=== PATIENT | female | born 1960 | race Caucasian/White ===

== ENCOUNTER 2019-09-12 11:28 | Emergency (ER) | payer MEDICAID, SELFPAY ==
[2019-09-12] VITALS (42 sets, daily range): BP systolic 71–171; BP diastolic 41–89; PULSE 53–76; RESP 9–24; TEMP 36.5–36.7; O2SAT 86–100
--- NOTE | 2019-09-12 11:30 | DI.RAD_ITS ---
EXAM: XR WRIST LT COMPLETE and XR forearm LT CLINICAL HISTORY: fall, deformity. TECHNIQUE: 2D digital imaging was performed. COMPARISON: XR FOREARM LT from 09/12/2019 FINDINGS: BONES: There is a comminuted fracture of the distal left radius. The fracture is intra-articular. T here is impaction and dorsal angulation of the distal fracture noted. There is a displaced fracture of the ulnar styloid process. The proximal forearm and visualized portions of the elbow are unremark able. JOINTS: The carpal bones are normally aligned. SOFT TISSUE: There is soft tissue swelling about the wrist. IMPRESSION: Fractures involving the distal left radius and ulna as described above. DATA REPOSITORY: RADIATION DOSE DELIVERED:
--- NOTE | 2019-09-12 11:44 | ED.GENADUL_ITS ---
Discharge Plan Disposition Patient Disposition: HOME Condition: Stable Discharge Details Chief Complaint: Chest/Rib Clinical Impression: Closed fracture of left distal radius, Displaced fracture of left ulna styloid process, initial encounter for closed fracture Primary Care Provider: None,None ED Provider: Dorie Michaels Home Meds and New Rx's Prescriptions: New tramadol 50 mg tablet 50 mg PO TID PRN (Reason: pain) 2 Days Qty: 7 RF: 0 ondansetron HCl [Zofran] 4 mg tablet 4 mg PO Q8H PRN (Reason: nausea and vomiting) Qty: 10 RF: 0 Discharge Instructions Instructions: Wrist Fracture in Adults (ED) Additional Instructions: Keep splint on until follow-up with orthopedics. Call [facility] tomorrow morning to confirm appointment on September 16. Ice, elevation, NSAIDs. Referrals: Aquiles Beth MD [ [facility] STAFF PHYSICIAN] - Discharge Data Discharge Date/Time-TO BE ENTERED AT DEPARTURE: 09/12/19 19:45 Medical Decision Making <Dorie Michaels - Last Filed: 09/13/19 08:06> 58-year-old female presents with left rib and left arm pain after a fall off a chair approximately 1 hour prior to arrival. Patient states she was standing on a chair cleaning on her cupboards when she fell landing on some cans her left side. She has an obvious deformity noted to her mid forearm. Denies LOC, neck or back pain. Lungs are clear to auscultation bilaterally. Left extremity distal to the injury is pink warm dry cap refill less than 3 seconds radial pulses intact. She denies any elbow or shoulder pain. Also upon examination she began saying that she was having angina above my aorta. She is alert and oriented x4. X-rays ordered, IV axis Zofran and morphine EKG. 1157: EKG obtained due to patient's complaint of chest pain. Normal sinus rhythm no ectopy no ST elevation or depression. There is no old EKG to review, rate of 67 IN interval 118. 1333: Dr. Beth orthopedic doctor at bedside for reduction Dr. Can at bedside for conscious sedation. Patient received 60 mg of Propofol IV. Vital signs remained stable patient tolerated well. Dr. Beth applied sugar tong splint. Post reduction x-ray ordered. TECHNIQUE: 2D digital imaging was performed. COMPARISON: XR FOREARM LT from 09/12/2019 FINDINGS: BONES: There is a comminuted fracture of the distal left radius. The fracture is intra-articular. There is impaction and dorsal angulation of the distal fracture noted. There is a displaced fracture of the ulnar styloid process. The proximal forearm and visualized portions of the elbow are unremarkable. JOINTS: The carpal bones are normally aligned. SOFT TISSUE: There is soft tissue swelling about the wrist. IMPRESSION: Fractures involving the distal left radius and ulna as described above. CLINICAL HISTORY: left side rib pain TECHNIQUE: 2D digital imaging was performed. COMPARISON: No exams were available for comparison FINDINGS: MEDIASTINUM: Normal. HEART: Normal. PULMONARY VASCULATURE: Normal. LUNGS: Clear. PLEURAL SPACE: No pleural effusion or pneumothorax. BONE:No fracture or dislocation is identified. Portions of the lateral aspects of the left ribs are not included. OTHER FINDINGS:Normal. IMPRESSION: No acute pulmonary findings. Spoke with Dr. aLngford reviewed the postreduction x-rays, he reports to have patient follow-up in office on September 16. He recommends NSAIDs, ice and elevation. Discussed results with patient, verbalizes understanding. 1525: Patient complaining of nausea Zofran orders in place. Additional normal saline liter bolus ordered patient falls asleep easily O2 sat down to 86-87% on room air, patient placed on 2L O2 n/c. HPI <Dorie Michaels - Last Filed: 09/13/19 08:06> General Mode of arrival: wheelchair . Date/Time Provider Initiated Documentation: 09/12/19 11:29 . Limitations to Documentation: no limitations . Information obtained by: patient . HPI Narrative: 58-year-old female presents with left rib and left arm pain after a fall off a chair approximately 1 hour prior to arrival. Patient states she was standing on a chair cleaning on her cupboards when she fell landing on some cans her left side. She has an obvious deformity noted to her mid forearm. Denies LOC, neck or back pain. Lungs are clear to auscultation bilaterally. Left extremity distal to the injury is pink warm dry cap refill less than 3 seconds radial pulses intact. She denies any elbow or shoulder pain. Also upon examination she began saying that she was having angina above my aorta. She is alert and oriented x4. Related Data Home Medications Medication Instructions Recorded Confirmed ondansetron HCl [Zofran] 4 mg PO Q8H PRN #10 tab 09/12/19 tramadol 50 mg PO TID PRN 2 Days #7 tab 09/12/19 Previous Rx's Medication Instructions Recorded ondansetron HCl [Zofran] 4 mg PO Q8H PRN #10 tab 09/12/19 tramadol 50 mg PO TID PRN 2 Days #7 tab 09/12/19 Allergies Allergy/AdvReac Type Severity Reaction Status Date / Time No Known Allergies Allergy Unverified 09/12/19 12:32 General Stated Complaint: Chest/Rib [place]: 3 Review of Systems <Dorie [place] [facility] Filed: 09/13/19 08:06> Narrative: Constitutional: Negative for weight loss, alert and oriented, well groomed, normal body habitus, appears uncomfortable. HEENT: Denies headaches, blurry vision, nasal discharge, sore throat, trouble swallowing. Chest: Denies palpitations, irregular rhythm, hypertension. Respiratory: Denies Shortness of breath, cough, hemoptysis. Complaining of left rib pain. Extremities: Left upper extremity deformity and pain. GI: Denies abdominal pain, nausea, vomiting, diarrhea, constipation. : Denies dysuria, hematuria, flank pain, rectal bleeding. Neuro: Denies dizziness, blurry vision, weakness, syncope, headache or facial numbness. Hematologic: Denies easy bruising, intolerance to heat or cold, hair loss. PFSH <Doriekali [place] [facility] Filed: 09/13/19 08:06> Social History Smoking/Tobacco Use Status: Never Alcohol Intake: never Drug use: Never Substance use type: does not use Do you feel safe at home: Yes Do you feel safe in your relationship?: Yes Exam <Doriekali [place]ton [employer] [facility] Filed: 09/13/19 08:06> Narrative Exam Narrative: Constitutional: Allert and oriented x3. Appears stated age. Normal body habitus. Head: Normocephalic, no trauma. Eyes: Pupils PERRLA, Red reflex noted, EOM's intact. Eyelids symmetrical withour lesions, discharge, or swelling. ENT: Bilateral TM's WNL, External ear normal to inspection, no mastoid TTP, swelling, or erythema, Nasal turbinates WNL, no nasal discharge. Normal dentition, Posterior pharynx WNL, no exudate. Chest: RRR, Normal S1, S2, distal pulses intact. Resp: Lungs clear to auscultation bilaterally, no wheezes, rales, or rhonchi. Musculoskeletal: Left upper extremity deformity midshaft forearm. Skin: No suspicious rashes or lesions. Capillary refill less than 2 sec. Neurologic: Cranial nerves II-XII intact. Alert and oriented x 3. DTR's intact. Hematologic/Lymphatic: No ecchymosis, no lymphadenopathy. Course <Doriecarina [place] - Last Filed: 09/13/19 08:06> Vital Signs Vital signs: Vital Signs Temperature 36.7 C 09/12/19 11:31 Pulse 69 09/12/19 11:31 Respiratory Rate 16 09/12/19 11:31 Blood Pressure 171/74 H 09/12/19 11:31 Pulse Oximetry 100 09/12/19 11:31 Temperature 36.7 C 09/12/19 11:31 Temperature Source Tympanic 09/12/19 11:31 Pulse 69 09/12/19 11:31 Respiratory Rate 16 09/12/19 11:31 Respiratory Effort Splinting 09/12/19 11:34 Respiratory Depth Shallow 09/12/19 11:34 Blood Pressure 171/74 H 09/12/19 11:31 Blood Pressure Position Sitting 09/12/19 11:31 Pulse Oximetry 100 09/12/19 11:31 Oxygen Delivery Method Room Air 09/12/19 11:31 Oxygen Flow Rate 0 09/12/19 11:31 Pain Level 8 09/12/19 11:34 <August Can MD - Last Filed: 09/12/19 14:19> Procedural Sedation Indication: fracture/dislocation reduction ASA Class: I Time of Last PO Intake: 08:00 Preparation: insert cutter applied, pulse oximeter, capnometry used and supplemental O2 applied IV Propofol dose (mg): 60 Patient Tolerated Procedure: well Complications: none
[2019-09-12] MEDS: Ondansetron 4 MG/2 ML VIAL IVP ×2 (11:55→14:45)
[2019-09-12] MEDS: Ketorolac 15 MG/ML VIAL IVP (12:00)
--- NOTE | 2019-09-12 13:00 | DI.RAD_ITS ---
EXAM: XR CHEST 1V IN DI DEPT CLINICAL HISTORY: left side rib pain TECHNIQUE: 2D digital imaging was performed. COMPARISON: No exams were available for comparison FINDINGS: MEDIASTINUM: Normal. HEART: Normal. PULMONARY VASCULATURE: Normal. LUNGS: Clear. PLEURAL SPACE: No pleural effusion or pneumothorax. BONE:No fracture or dislocation is identified. Portions of the lateral aspects of the left ribs are not included. OTHER FINDINGS:Normal. IMPRESSION: No acute pulmonary findings. DATA REPOSITORY: RADIATION DOSE DELIVERED:
[2019-09-12] MEDS: Propofol 200 MG/20 ML VIAL 60 MG IVP (13:37)
--- NOTE | 2019-09-12 13:43 | NUR.NOTE ---
Nursing Note: Left wrist reduction with MD Can and MD Beth. Pre-procedure vitals BP 127/89, HR 71, RR 16, temp 37.1. Time out performed at 1334. Procedure and Propofol administration at 1337 (MD Can administered medication). Left wrist reduction performed successfully by MD Beth at 1340. Vitals stable and monitored by RN at bedside every 5 minutes. Respiratory therapist (Adán) at bedside throughout procedure. Pt currently awake, alert, and oriented 1348. Procedure end 1350.
--- NOTE | 2019-09-12 13:45 | DI.RAD_ITS ---
EXAM: XR WRIST LT LIMITED CLINICAL HISTORY: POST REDUCTION 2 VIEW. TECHNIQUE: 2D digital imaging was performed. COMPARISON: XR FOREARM LT from 09/12/2019 XR WRIST LT COMPLETE from 09/12/2019 FINDINGS: BONES: The distal radial fracture has been reduced. The alignment appears near anatomic. There is mi ld impaction of the fracture noted. There is a mildly displaced ulnar styloid process fracture. No dimitri ny destructive lesion is seen. The patient's wrist is in a cast. JOINTS: The carpal bones are normally aligned. SOFT TISSUE: Soft tissue swelling. IMPRESSION: Interval reduction of the distal radial and ulnar fractures. DATA REPOSITORY: RADIATION DOSE DELIVERED:
--- NOTE | 2019-09-12 13:53 | NUR.NOTE ---
Nursing Note: [facility] Referrals Faxed MR [id number]
--- NOTE | 2019-09-12 14:00 | NUR.NOTE ---
Nursing Note: Procedure start 1337: Vitals: BP 127/89, HR 71, 95% RA, Cacography 37, RR 18, temp 37.1. 1342 Vitals: BP 131/75, HR 73, RR 16, Capno 36. 1347 Vitals: BP 150/71, HR 68, RR16, Capno 38 Plaster cast applied by MD Beth 1347 Procedure end 1350: PT awake, alert, and oriented-Vitals 138/67, HR 63, RR 17, Capno 39 Will continue to monitor patent until DC.
--- NOTE | 2019-09-12 14:54 | OCONE_ITS ---
Date of service: 09/12/19 Time of Service: 13:59 History of Present Illness Narrative: Chief Complaint: Left wrist pain HPI: 58-year-old female status post fall from chair onto left side with left wrist deformity sudden onset, severe pain and left chest wall pain. Presented to the emergency department and found to have significantly displaced and angulated left distal radius fracture. Declined emergency room physician hematoma block due to significance of pain and anxiety about the wrist. prior injury: No attempted treatments: None yet numbness/tingling: Denies prior imaging: X-rays left wrist and forearm PMH: Negative diabetes: Denies allergies: NKDA FH: non-contributory SH: hand dominance: Right occupation: Retired nurse? smoke cigarettes: No Consult Reason Left distal radius displaced angulated fracture emergency room evaluation and management Assessment and Plan Assessment and plan (1) Closed fracture of left distal radius: Status: Acute Assessment and plan: 58-year-old female with left significantly displaced and angulated distal radius and ulnar styloid fractures Closed reduction with manipulation under procedural sedation in emergency room today Non-weightbearing, elevation, gentle use of fingers to minimize swelling and encourage circulation Discuss risks of fracture re-displacement and the potential need for surgical management Follow-up with Dr. Beth at [facility] orthopedics in 5 days for XR reduction check. Please call tomorrow morning to confirm appointment. All questions were answered Agree and understand treatment plan Will call if any changes or concerns Qualifiers: Encounter type: initial encounter Fracture morphology: Colles' Qualified Code(s): S52.532A - Colles' fracture of left radius, initial encounter for closed fracture (2) Displaced fracture of left ulna styloid process, initial encounter for closed fracture: Status: Acute Assessment and plan: As above (3) Chest pain: Status: Acute Assessment and plan: likely musculoskeletal etiology with superimposed anxiety defer to ER evaluation and management with EKG, CXR, and labwork pending Qualifiers: Chest pain type: other chest pain Qualified Code(s): R07.89 - Other chest pain Review of Systems Constitutional Constitutional: Denies chills and Denies fever(s) Eyes Eyes: Denies diplopia and Denies loss of vision ENT Ears, Nose, Mouth, and Throat: Denies dental pain and Denies other (cavities) Cardiovascular Cardiovascular: Denies chest pain with activity, Denies irregular heart rhythm and Denies dyspnea Respiratory Respiratory: Denies cough and Denies dyspnea Gastrointestinal Gastrointestinal: Denies nausea and Denies vomiting Musculoskeletal Musculoskeletal: Reports as per HPI Integumentary/Breasts Skin/Breast: Denies rash and Denies wounds Neurologic Neurologic: Reports as per HPI and Denies loss of vision Psychiatric Psychiatric: Reports anxiety and Denies depression Hematologic/Lymphatic Hematologic/Lymphatic: Denies easy bleeding and Denies easy bruising Allergic/Immunologic Allergic/Immunologic: Reports as per HPI [facility] Social History Smoking/Tobacco Use Status: Never Alcohol Intake: never Drug use: Never Substance use type: does not use Do you feel safe at home: Yes Do you feel safe in your relationship?: Yes Exam Const General: cooperative, comfortable and no acute distress Orientation: alert, awake and not confused Limitations: mental status not altered and no language barrier HENMT Head: normocephalic and atraumatic Neck Neck: normal visual inspection and full ROM Resp Effort & Inspection: normal respiratory effort, able to speak in complete sentences, no audible wheezes and no grunting General: deferred Skin General skin exam: no rashes or lesions noted Neuro General: patient alert, patient awake and patient oriented x3 Cognition: normal cognition Speech: speech normal Extrem Other: Left wrist: Guarding about the left wrist and anxiety throughout exam that improves greatly with encouragement Obvious dorsal angulation deformity Skin intact No numbness or paresthesias median, radial, ulnar nerves Demonstrates intact motor AIN, PIN, ulnar nerves and all finger thumb extensor and flexor tendons 2+ radial pulse and regular rate and rhythm Brisk cap refill throughout All forearm compartments soft Exam with improved active motor post reduction and stable, intact neurovascular exam, more comfortable No median nerve symptoms Psych Appearance: grossly normal Mental Status: mental status grossly normal Speech and Movement: speech and movement normal Affect: normal affect Attitude: cooperative Results Last Vital Signs Temp 98.1 F 09/12/19 11:31 Pulse 69 09/12/19 11:31 Resp 16 09/12/19 11:31 BP 171/74 H 09/12/19 11:31 Pulse Ox 100 09/12/19 11:31 Imaging Chest x-ray: pending Imaging Studies: Left wrist x-rays and report independently reviewed: Ulnar styloid fracture. Significantly displaced and angulated dorsally almost 80 degrees largely extra-articular distal radius fracture. Left forearm x-rays and report independently reviewed: Negative for forearm fracture or dislocation Chest x-ray: no obvious rib fxs or PNX Left wrist x-rays post-reduction: Well-reduced DR fx with spiritism of radial height and volar tilt in plaster splint Procedures Orthopedic Fracture Reduction Left wrist close reduction: Time out performed: Yes Side: left Fracture reduction location: radius (Distal radius and ulnar styloid fractures) and ulna Analgesia: procedural sedation Technique: direct manipulation Post-reduction x-rays demonstrate: anatomical reduction Post-reduction neuro exam: intact Post-reduction vascular exam: intact Splint applied: Yes (Well molded appropriately padded sugar tong plaster splint) Patient tolerated procedure: well
[2019-09-12] MEDS: Normal Saline 1,000 ML 1000 ML IV (15:54)
--- NOTE | 2019-09-12 19:48 | NUR.NOTE ---
Nursing Note: Sling applied to left arm. PT wheeled to car in wheel chair.
== END 2019-09-12 19:45 | disposition home or self-care (01) ==
PROVIDERS: Emergency Provider Registered Nurse Emergency
DX: R07.81 Pleurodynia (principal); S52.532A Colles' fracture of left radius, initial encounter for closed fracture; S52.612A Displaced fracture of left ulna styloid process, initial encounter for closed fracture; W07.XXXA Fall from chair, initial encounter
CPT/HCPCS: 93005; 96361; 96374; 96375; 96376; 99254; 99284; 25605; 71045; 73090; 73100; 73110; 93010; 99283; J1885; J2405; J2704; L3650

== ENCOUNTER 2019-09-17 11:21 | Outpatient (CLI) | payer MEDICAID, SELFPAY ==
--- NOTE | 2019-09-17 11:20 | DI.RAD_ITS ---
EXAM: XR WRIST LT LIMITED CLINICAL HISTORY: follow up TECHNIQUE: 2D digital imaging was performed. COMPARISON: XR WRIST LT LIMITED from 09/12/2019 FINDINGS: A plaster splint is in place partially obscures the underlying bony detail. There has been no hurd e in the alignment the comminuted intra-articular fracture of the distal radius or ulnar styloid frac ture.
== END 2019-09-17 11:41 ==
PROVIDERS: Visit Provider Student in an Organized Health Care Education/Training Program
DX: S52.612A Displaced fracture of left ulna styloid process, initial encounter for closed fracture (principal); S52.572A Other intraarticular fracture of lower end of left radius, initial encounter for closed fracture
CPT/HCPCS: 73100

== ENCOUNTER 2019-09-24 11:39 | Outpatient (CLI) | payer MEDICAID, SELFPAY ==
--- NOTE | 2019-09-24 11:15 | DI.RAD_ITS ---
EXAM: XR WRIST LT LIMITED CLINICAL HISTORY: closed fracture of left wrist TECHNIQUE: COMPARISON: XR WRIST LT LIMITED from 09/17/2019 FINDINGS: Two views were obtained. The wrist is in a splint. Previously noted fractures of the distal radius and the ulnar styloid are again seen with no change in alignment in comparison with the previous exam ination of September 16. IMPRESSION:
== END 2019-09-24 11:59 ==
PROVIDERS: Visit Provider Physician Assistant Surgical
DX: S52.612D Displaced fracture of left ulna styloid process, subsequent encounter for closed fracture with routine healing (principal); S52.572D Other intraarticular fracture of lower end of left radius, subsequent encounter for closed fracture with routine healing
CPT/HCPCS: 73100

== ENCOUNTER 2019-10-23 10:41 | Outpatient (CLI) | payer MEDICAID, SELFPAY ==
--- NOTE | 2019-10-23 10:15 | DI.RAD_ITS ---
EXAM: XR WRIST LT LIMITED CLINICAL HISTORY: f/u TECHNIQUE: 2D digital imaging was performed. COMPARISON: XR WRIST LT LIMITED from 09/24/2019 FINDINGS: A cast is in place which partially obscures the bony detail. There has been no significant change in alignment of the distal radial fracture.
== END 2019-10-23 11:01 ==
PROVIDERS: Visit Provider Orthopaedic Surgery
DX: S52.572D Other intraarticular fracture of lower end of left radius, subsequent encounter for closed fracture with routine healing (principal); S52.612D Displaced fracture of left ulna styloid process, subsequent encounter for closed fracture with routine healing
CPT/HCPCS: 73100

== ENCOUNTER 2019-11-20 11:18 | Outpatient (CLI) | payer MEDICAID, SELFPAY ==
--- NOTE | 2019-11-20 10:00 | DI.RAD_ITS ---
EXAM: XR WRIST LT LIMITED CLINICAL HISTORY: f/u fracture TECHNIQUE: COMPARISON: CR XR WRIST LT LIMITED from 10/23/2019 FINDINGS: Two views were obtained and show previously described fracture of the distal radius and ulnar styloid , no gross interval change in alignment of fracture fragments comparison previous examination of October 22. IMPRESSION:
== END 2019-11-20 11:38 ==
PROVIDERS: Referring Provider Registered Nurse Emergency; Visit Provider Orthopaedic Surgery
DX: S52.612D Displaced fracture of left ulna styloid process, subsequent encounter for closed fracture with routine healing (principal)
CPT/HCPCS: 73100